=== PATIENT | female | born 1975 | race African-American/Black ===

== ENCOUNTER 2016-09-16 09:23 | Emergency (ER) | payer SELFPAY ==
[2016-09-16] MEDS ORDERED: Dexamethasone 4 MG TAB ONE (10:05)
[2016-09-16] MEDS ORDERED: Ondansetron ODT 4 MG TAB ONE (10:05)
[2016-09-16] MEDS ORDERED: Benzonatate 100 MG CAP ONE (10:05)
--- NOTE | 2016-09-16 10:27 | ERRECORD ---
[facility] EMERGENCY RECORD HPI COUGH (10:14 ABUS) CHIEF COMPLAINT: Patient presents for evaluation of cough, productive of clear sputum. HISTORIAN: History provided by patient, 41 yr old here with 4 days of cough, sore throat, left ear pain, and mild N/V x 2 episodes of vomiting. Denies any F, rash, swelling. LOCATION: Symptoms are generalized. QUALITY: Denies choking sensation, Denies tightness, Denies wheezing. SEVERITY: Currently symptoms are moderate. TIME COURSE: Gradual onset of symptoms, There has been no change in the patient's symptoms over time, are constant. ASSOCIATED WITH: No associated chest pain, Associated with chills, No associated diarrhea, No associated diaphoresis, No associated fever, Associated with nausea, intermittent, No associated orthopnea, Associated with upper respiratory infection, for 4 days, intermittent. EXACERBATED BY: Patient's condition exacerbated by nothing. RELIEVED BY: Patient's condition relieved by nothing. ROS (10:16 ABUS) CONSTITUTIONAL: Negative constitutional review of systems, Historian denies chills, denies fever. ENT: Historian denies drooling, reports otalgia, denies rhinorrhea, reports sore throat. CARDIOVASCULAR: Negative cardiovascular review of systems, Historian denies chest pain, denies palpitations. RESPIRATORY: Historian reports cough, denies cyanosis, denies shortness of breath, reports sputum. described as thin, Historian denies wheezing. GI: Negative gastrointestinal review of systems, Historian denies abdominal pain, denies constipation, denies diarrhea, denies nausea, denies vomiting. GENITOURINARY FEMALE: Negative genitourinary review of systems, Historian denies dysuria, denies frequency. SKIN: Negative skin review of systems, Historian denies rash, denies skin changes. NEUROLOGIC: Negative neurologic review of systems, Historian denies headache. HEMO/LYMPHATIC: Normal hematologic/lymphatic system review, Historian denies abnormal blood clotting. PAST MEDICAL HISTORY (09:38 SFRE) MEDICAL HISTORY: No past medical history. Past medical history is not significant. FEMALE SURGICAL HISTORY: Surgical history of section, Surgical history of section, Surgical history of tubal ligation, Surgical history of section, Notes: X3, Surgical history of tubal ligation. 08-18-15. Surgical history of section. &a-1R&a+25V*p+0X*a1903W*c202B*c15G*c2P*p-0X&a-25V&a+1R Name: Nataly Escobar : 1975 F41 MedRec: [id number] AcctNum: [id number] Prepared: Britta Sep 16, 2016 10:31 by Interface Page 1 of 4 pMD [facility] EMERGENCY RECORD PSYCHIATRIC HISTORY: No previous psychiatric history, Notes: DENIES. Psychiatric history includes. SOCIAL HISTORY: Patient denies alcohol use, Patient denies drug use, Patient has no smoking history. FAMILY HISTORY: Family istory is not significant. KNOWN ALLERGIES No Known Drug Allergies CURRENT MEDICATIONS (09:38 SFRE) None VITAL SIGNS (09:37 SFRE) VITAL SIGNS: BP: 115/49, Pulse: 75, Resp: 18, Temp: 98.3 (Tympanic), Pain: 6 (not applicable), O2 sat: 100 on Room Air, Time: 09/16/2016 09:37. PHYSICAL EXAM CONSTITUTIONAL: Vital signs reviewed, Patient afebrile, Pulse normal, Blood pressure normal, Respiratory rate normal, Patient appears non toxic, Patient appears pain free, Patient alert and oriented to person, place and time. (10:16 ABUS) HEAD: Head exam normal, Head exam included findings of head atraumatic, normocephalic. (10:16 ABUS) EYES: Eye exam included findings of eyelids normal to inspection, Conjunctiva normal, Sclera normal, no periorbital ecchymosis, no periorbital edema, no periorbital erythema. (10:16 ABUS) ENT: Pharynx exam normal, not injected, no swelling, symmetrical, Uvula exam normal, midline, no edema, Tonsils, enlarged bilaterally, without exudates, Sinus exam included findings of frontal sinuses normal, Maxillary sinuses with, tenderness bilaterally, erythema bilaterally, no swelling. (10:17 ABUS) NECK: Neck exam normal, Neck exam included findings of normal range of motion, Trachea midline, no meningeal signs, no cervical adenopathy, no tenderness. (10:16 ABUS) RESPIRATORY CHEST: Respiratory and chest exam normal, Respiratory exam included findings of no respiratory distress, Breath sounds clear. (10:16 ABUS) CARDIOVASCULAR: Cardiovascular assessment normal, Cardiovascular exam included findings of heart rate regular rate and rhythm, Heart sounds normal. (10:16 ABUS) ABDOMEN FEMALE: Abdominal exam included findings of abdomen nontender, Bowel sounds normal, no distension, no mass, no pulsatile masses, no peritoneal signs, no rigidity, no guarding, no rebound, Rovsing's sign absent. (10:16 ABUS) BACK: Back exam normal, Back exam included findings of normal inspection, range of motion normal, no tenderness. (10:16 ABUS) NEURO: Neuro exam normal, Neuro exam findings include patient oriented to person, place and time, Speech normal, Gait normal. &a-1R&a+25V*p+0X*q4705B*c202B*c15G*c2P*p-0X&a-25V&a+1R Name: Nataly Escobar : 1975 F41 MedRec: [id number] AcctNum: [id number] Prepared: Britta Sep 16, 2016 10:31 by Interface Page 2 of 4 pMD [facility] EMERGENCY RECORD (10:16 ABUS) SKIN: Skin exam normal, Skin exam included findings of skin warm, dry, and normal in color, no rash. (10:16 ABUS) MEDICATION ADMINISTRATION SUMMARY Drug Name: Decadron oral, Dose Ordered: 8 mg, Route: Oral, Status: Given, Time: 10:11 09/16/2016, Drug Name: Zofran ODT, Dose Ordered: 4 mg, Route: Oral, Status: Given, Time: 10:10 09/16/2016, Drug Name: Italo Perles, Dose Ordered: 100 mg, Route: Oral, Status: Given, Time: 10:10 09/16/2016, Detailed record available in Medication Service section. DOCTOR NOTES (10:17 ABUS) TEXT: 41 yr old here with 4 days of cough, sore throat, left ear pain, and mild N/V x 2 episodes of vomiting. Exam: Cough, edil enlarged tonsilar swelling without exudates. Left ear wax. DDX: Bronchitis, Viral URI, Flu, Sinusitis, Community Acquired Pneumonia, Allergies, Allergic Rhinitis. PLAN: Antibiotics, antitussives, and Analgesics as needed Final Dispo: D/C Home with regular follow up and return precautions. All results of testing and evaluation were shared with the patient who verbalized understanding and agreement with the plan of care. Level of Complexity / Medical Decision Making: Moderate. PROBLEM LIST No recorded problems DIAGNOSIS (10:11 ABUS) FINAL: PRIMARY: Acute Bronchitis, ADDITIONAL: ACUTE SINUSITIS UNSPECIFIED. PRESCRIPTION (10:10 ABUS) Zofran ODT: TABLET,DISINTEGRATING : 4 mg : ORAL : Quantity: 1 Unit: tab(s) Route: ORAL Schedule: every 6 hours PRN Dispense: 6 Unit: tab(s) May substitute. Refills: No Refills . NOTES: No Refills. acetaminophen-codeine: TABLET : 300 mg-30 mg : ORAL : Quantity: 1 Unit: tab(s) Route: ORAL Schedule: every 6 hours PRN Dispense: 8 Unit: tab(s) May substitute. Refills: No Refills . NOTES: ^s=No Refills No Refills. amoxicillin: CAPSULE : 500 mg : ORAL : Quantity: 1 Unit: cap(s) Route: ORAL Schedule: 3 times a day Dispense: 21 Unit: cap(s) May substitute. Refills: No Refills . NOTES: ^s=^s=No Refills &a-1R&a+25V*p+0X*r6199N*c202B*c15G*c2P*p-0X&a-25V&a+1R Name: Nataly sEcobar : 1975 F41 MedRec: [id number] AcctNum: [id number] Prepared: ThuSep 16, 2016 10:31 by Interface Page 3 of 4 pMD [facility] EMERGENCY RECORD No Refills No Refills. DISPOSITION PATIENT: Disposition Type: Discharge, Disposition: *Discharge Home, Condition: Good. (10:11 ABUS) Patient left the department. (10:25 SFRE) Gomez: ABUS=MD Kandi, Kieran SFRE=ADEBAYO Cabrera, Pao &a-1R&a+25V*p+0X*[id number]*c202B*c15G*c2P*p-0X&a-25V&a+1R Name: Nataly Escobar : 1975 F41 MedRec: [id number] AcctNum: [id number] Prepared: Britta Sep 16, 2016 10:31 by Interface Page 4 of 4 pMD MTDD
--- NOTE | 2016-09-16 10:31 | PICIS ---
[facility] EMERGENCY RECORD TRIAGE (09:38 SFRE) TRIAGE NOTES: COUGH, SORE THROAT, RUNNY NOSE. (09:38 SFRE) PATIENT: NAME: Nataly Escobar, AGE: 41, GENDER: female, : Mon 1975, TIME OF GREET: ThuSep 16, 2016 09:24, PREFERRED LANGUAGE: [place]an, ETHNICITY: Not or , FALL RISK: NO, ECODE BILLING MAP: [facility], SSN: [id number], Zip Code: [address], KG WEIGHT: 61.23, PHONE: CELL, , , PERSON ID: [id number], PCP: MD NICOLE IMELDA. (09:38 SFRE) COMPLAINT: COUGH,SORE THROAT. (09:38 SFRE) ADMISSION: URGENCY: 4 Non Urgent, ADMISSION SOURCE: Home, TRANSPORT: Walk-in, BED: WAIT. (09:38 SFRE) PROVIDERS: TRIAGE NURSE: Pao Cabrera RN. (09:38 SFRE) VITAL SIGNS: BP 115/49, Pulse 75, Resp 18, Temp 98.3, (Tympanic), Pain 6, (not applicable), O2 Sat 100, on Room Air, Time 09/16/2016 09:37. (09:37 SFRE) PREVIOUS VISIT ALLERGIES: No Known Drug Allergies. (09:38 SFRE) No Known Drug Allergies. (09:38 SFRE) KNOWN ALLERGIES No Known Drug Allergies CURRENT MEDICATIONS (09:38 SFRE) None VITAL SIGNS (09:37 SFRE) VITAL SIGNS: BP: 115/49, Pulse: 75, Resp: 18, Temp: 98.3 (Tympanic), Pain: 6 (not applicable), O2 sat: 100 on Room Air, Time: 09/16/2016 09:37. NURSING ASSESSMENT: ENT (09:44 SFRE) CONSTITUTIONAL: Patient arrives ambulatory, Gait steady, History obtained from patient, Patient appears, generally ill, Patient cooperative, Patient alert, Oriented to person, place and time, Skin warm, Skin dry, Skin normal in color, Mucous membranes pink, Mucous membranes moist, Patient is well-groomed, Patient complains of COUGH, CONGESTION, RUNNY NOSE SORE THROAT. PAIN: to the throat, UNABLE TO GIVE QUALITY OF PAIN, on a scale 0-10 patient rates pain as 6, Pain exacerbated by, swallowing, Nothing has been tried to alleviate the pain. ENT: Discharge, thin, yellow, from bilateral nare, Congestion, bilaterally, Mouth and throat assessment findings include mouth inspection normal, Uvula normal, Tonsils normal, Mucous membranes pink, and moist, Able to swallow, Speech normal, no associated fever, no associated headache. RESPIRATORY/CHEST: Breath sounds clear, Respiratory assessment findings include respiratory effort easy, Respirations regular, &a-1R&a+25V*p+0X*m9963P*c202B*c15G*c2P*p-0X&a-25V&a+1R Name: Nataly Escobar : 1975 F41 MedRec: [id number] AcctNum: [id number] Prepared: ThuSep 16, 2016 10:35 by Interface Page 1 of 6 pMD [facility] EMERGENCY RECORD Conversing normally, Neck and chest exam findings include trachea midline, Chest expansion equal, Chest movement symmetrical, Associated with cough, productive of, yellow sputum. SAFETY: Side rails up, Cart/Stretcher in lowest position, Family at bedside, Call light within reach, Hospital ID band on. NURSING PROCEDURE: DISCHARGE NOTE (10:20 SFRE) DISCHARGE: Patient discharged to home, ambulating without assistance, driving self, unaccompanied, Summary of Care printed/ provided, Patient requested and was provided an electronic copy of Discharge Instructions, Discharge instructions given to patient, Simple or moderate discharge teaching performed, by ADEBAYO ACOSTA, F/U WITH PCP. RX DIRECTED. RETURN TO ED NEEDED FOR NEW/CONCERNING OR WORSENING SYMPTOMS., Prescriptions given and instructions on side effects given, Name of prescription(s) given: ZOFRAN, T3, AMOXICILLAN, Above person(s) verbalized understanding of discharge instructions and follow-up care. MEDICATION ADMINISTRATION SUMMARY Drug Name: Decadron oral, Dose Ordered: 8 mg, Route: Oral, Status: Given, Time: 10:11 09/16/2016, Drug Name: Zofran ODT, Dose Ordered: 4 mg, Route: Oral, Status: Given, Time: 10:10 09/16/2016, Drug Name: Tessalon Perles, Dose Ordered: 100 mg, Route: Oral, Status: Given, Time: 10:10 09/16/2016, Detailed record available in Medication Service section. MEDICATION SERVICE Decadron oral: Order: Decadron oral (dexamethasone) - Dose: 8 mg : Oral Schedule: Now Ordered by: Kieran Chau MD Entered by: Kieran Chau MD ThuSep 16, 2016 09:54 , Acknowledged by: Pao Cabrera RN ThuSep 16, 2016 10:00 Documented as given by: Pao Cabrera RN ThuSep 16, 2016 10:11 Patient, Medication, Dose, Route and Time verified prior to administration. Amount given: 8MG, Site: Medication administered P.O., Correct patient, time, route, dose and medication confirmed prior to administration, Patient advised of actions and side-effects prior to administration, Allergies confirmed and medications reviewed prior to administration, Patient in position of comfort, Side rails up, Cart in lowest position, Family at bedside. Italo Enriquez: Order: Italo Enriquez (benzonatate) - Dose: 100 mg : Oral Schedule: Now Ordered by: Kieran Chau MD Entered by: Kieran Chau MD ThuSep 16, 2016 09:54 , &a-1R&a+25V*p+0X*z9000R*c202B*c15G*c2P*p-0X&a-25V&a+1R Name: Nataly Escobar : 1975 F41 MedRec: [id number] AcctNum: [id number] Prepared: ThuSep 16, 2016 10:35 by Interface Page 2 of 6 pMD [facility] EMERGENCY RECORD Acknowledged by: Pao Cabrera RN ThuSep 16, 2016 10:00 Documented as given by: Pao Cabrera RN ThuSep 16, 2016 10:10 Patient, Medication, Dose, Route and Time verified prior to administration. Amount given: 100MG, Site: Medication administered P.O., Correct patient, time, route, dose and medication confirmed prior to administration, Patient advised of actions and side-effects prior to administration, Allergies confirmed and medications reviewed prior to administration, Patient in position of comfort, Side rails up, Cart in lowest position, Family at bedside. Thiago ODT: Order: Zofran ODT (ondansetron) - Dose: 4 mg : Oral Schedule: Now Ordered by: Kieran Chau MD Entered by: Kieran Chau MD dania Sep 16, 2016 09:54 , Acknowledged by: Pao Cabrera RN dania Sep 16, 2016 10:00 Documented as given by: Pao Cabrera RN dania Sep 16, 2016 10:10 Patient, Medication, Dose, Route and Time verified prior to administration. Amount given: 4MG, Site: Medication administered S.L., Correct patient, time, route, dose and medication confirmed prior to administration, Patient advised of actions and side-effects prior to administration, Allergies confirmed and medications reviewed prior to administration, Patient in position of comfort, Side rails up, Cart in lowest position, Family at bedside. HPI COUGH (10:14 ABUS) CHIEF COMPLAINT: Patient presents for evaluation of cough, productive of clear sputum. HISTORIAN: History provided by patient, 41 yr old here with 4 days of cough, sore throat, left ear pain, and mild N/V x 2 episodes of vomiting. Denies any F, rash, swelling. LOCATION: Symptoms are generalized. QUALITY: Denies choking sensation, Denies tightness, Denies wheezing. SEVERITY: Currently symptoms are moderate. TIME COURSE: Gradual onset of symptoms, There has been no change in the patient's symptoms over time, are constant. ASSOCIATED WITH: No associated chest pain, Associated with chills, No associated diarrhea, No associated diaphoresis, No associated fever, Associated with nausea, intermittent, No associated orthopnea, Associated with upper respiratory infection, for 4 days, intermittent. EXACERBATED BY: Patient's condition exacerbated by nothing. RELIEVED BY: Patient's condition relieved by nothing. ROS (10:16 ABUS) CONSTITUTIONAL: Negative constitutional review of systems, Historian denies chills, denies fever. ENT: Historian denies drooling, reports otalgia, denies &a-1R&a+25V*p+0X*n6217A*c202B*c15G*c2P*p-0X&a-25V&a+1R Name: Nataly Escobar : 1975 F41 MedRec: [id number] AcctNum: [id number] Prepared: [place] Sep 16, 2016 10:35 by Interface Page 3 of 6 pMD [facility] EMERGENCY RECORD rhinorrhea, reports sore throat. CARDIOVASCULAR: Negative cardiovascular review of systems, Historian denies chest pain, denies palpitations. RESPIRATORY: Historian reports cough, denies cyanosis, denies shortness of breath, reports sputum. described as thin, Historian denies wheezing. GI: Negative gastrointestinal review of systems, Historian denies abdominal pain, denies constipation, denies diarrhea, denies nausea, denies vomiting. GENITOURINARY FEMALE: Negative genitourinary review of systems, Historian denies dysuria, denies frequency. SKIN: Negative skin review of systems, Historian denies rash, denies skin changes. NEUROLOGIC: Negative neurologic review of systems, Historian denies headache. HEMO/LYMPHATIC: Normal hematologic/lymphatic system review, Historian denies abnormal blood clotting. PAST MEDICAL HISTORY (09:38 SFRE) MEDICAL HISTORY: No past medical history. Past medical history is not significant. FEMALE SURGICAL HISTORY: Surgical history of section, Surgical history of section, Surgical history of tubal ligation, Surgical history of section, Notes: X3, Surgical history of tubal ligation. 15. Surgical history of section. PSYCHIATRIC HISTORY: No previous psychiatric history, Notes: DENIES. Psychiatric history includes. SOCIAL HISTORY: Patient denies alcohol use, Patient denies drug use, Patient has no smoking history. FAMILY HISTORY: Family istory is not significant. PHYSICAL EXAM CONSTITUTIONAL: Vital signs reviewed, Patient afebrile, Pulse normal, Blood pressure normal, Respiratory rate normal, Patient appears non toxic, Patient appears pain free, Patient alert and oriented to person, place and time. (10:16 ABUS) HEAD: Head exam normal, Head exam included findings of head atraumatic, normocephalic. (10:16 ABUS) EYES: Eye exam included findings of eyelids normal to inspection, Conjunctiva normal, Sclera normal, no periorbital ecchymosis, no periorbital edema, no periorbital erythema. (10:16 ABUS) ENT: Pharynx exam normal, not injected, no swelling, symmetrical, Uvula exam normal, midline, no edema, Tonsils, enlarged bilaterally, without exudates, Sinus exam included findings of frontal sinuses normal, Maxillary sinuses with, tenderness bilaterally, erythema bilaterally, no swelling. (10:17 ABUS) NECK: Neck exam normal, Neck exam included findings of normal range of motion, Trachea midline, no meningeal signs, no cervical &a-1R&a+25V*p+0X*w8611V*c202B*c15G*c2P*p-0X&a-25V&a+1R Name: Nataly Escobar : 1975 F41 MedRec: [id number] AcctNum: [id number] Prepared: ThuSep 16, 2016 10:35 by Interface Page 4 of 6 pMD [facility] EMERGENCY RECORD adenopathy, no tenderness. (10:16 ABUS) RESPIRATORY CHEST: Respiratory and chest exam normal, Respiratory exam included findings of no respiratory distress, Breath sounds clear. (10:16 ABUS) CARDIOVASCULAR: Cardiovascular assessment normal, Cardiovascular exam included findings of heart rate regular rate and rhythm, Heart sounds normal. (10:16 ABUS) ABDOMEN FEMALE: Abdominal exam included findings of abdomen nontender, Bowel sounds normal, no distension, no mass, no pulsatile masses, no peritoneal signs, no rigidity, no guarding, no rebound, Rovsing's sign absent. (10:16 ABUS) BACK: Back exam normal, Back exam included findings of normal inspection, range of motion normal, no tenderness. (10:16 ABUS) NEURO: Neuro exam normal, Neuro exam findings include patient oriented to person, place and time, Speech normal, Gait normal. (10:16 ABUS) SKIN: Skin exam normal, Skin exam included findings of skin warm, dry, and normal in color, no rash. (10:16 ABUS) EVENTS TRANSFER: Triage to Emergency Waiting. (ThuSep 16, 2016 09:38 SFRE) Emergency Waiting to Main ED -04. (09:40 SFRE) Emergency Main ED -04 to -03. (09:40 SFRE) Removed from Emergency Main ED -03. (10:25 SFRE) DOCTOR NOTES (10:17 ABUS) TEXT: 41 yr old here with 4 days of cough, sore throat, left ear pain, and mild N/V x 2 episodes of vomiting. Exam: Cough, edil enlarged tonsilar swelling without exudates. Left ear wax. DDX: Bronchitis, Viral URI, Flu, Sinusitis, Community Acquired Pneumonia, Allergies, Allergic Rhinitis. PLAN: Antibiotics, antitussives, and Analgesics as needed Final Dispo: D/C Home with regular follow up and return precautions. All results of testing and evaluation were shared with the patient who verbalized understanding and agreement with the plan of care. Level of Complexity / Medical Decision Making: Moderate. PROBLEM LIST No recorded problems DIAGNOSIS (10:11 ABUS) FINAL: PRIMARY: Acute Bronchitis, ADDITIONAL: ACUTE SINUSITIS UNSPECIFIED. DISPOSITION PATIENT: Disposition Type: Discharge, Disposition: *Discharge Home, Condition: Good. (10:11 ABUS) Patient left the department. (10:25 SFRE) &a-1R&a+25V*p+0X*z3742K*c202B*c15G*c2P*p-0X&a-25V&a+1R Name: Nataly Escobar : 1975 F41 MedRec: [id number] AcctNum: [id number] Prepared: Britta Sep 16, 2016 10:35 by Interface Page 5 of 6 pMD [facility] EMERGENCY RECORD INSTRUCTION (10:11 ABUS) DISCHARGE: BRONCHITIS, ABX TX (ADULT), SINUSITIS, ABX TX. FOLLOWUP: MD COERY, [facility], [facility], [address] [place] [id number], [phone], Follow up with Primary Care Physician in 2-3 days. SPECIAL: Please keep any upcoming appointments with your primary doctor or call the referral provided to you today to establish a follow up evaluation or ongoing medical care. Please come back if you start to have fever, vomiting, chest pain, chest tightness, shortness of breath, or any symptoms that concern you. PRESCRIPTION (10:10 ABUS) Zofran ODT: TABLET,DISINTEGRATING : 4 mg : ORAL : Quantity: 1 Unit: tab(s) Route: ORAL Schedule: every 6 hours PRN Dispense: 6 Unit: tab(s) May substitute. Refills: No Refills . NOTES: No Refills. acetaminophen-codeine: TABLET : 300 mg-30 mg : ORAL : Quantity: 1 Unit: tab(s) Route: ORAL Schedule: every 6 hours PRN Dispense: 8 Unit: tab(s) May substitute. Refills: No Refills . NOTES: ^s=No Refills No Refills. amoxicillin: CAPSULE : 500 mg : ORAL : Quantity: 1 Unit: cap(s) Route: ORAL Schedule: 3 times a day Dispense: 21 Unit: cap(s) May substitute. Refills: No Refills . NOTES: ^s=^s=No Refills No Refills No Refills. ADMIN (10:19 [facility]) DIGITAL SIGNATURE: MD Chau Anthony. Gomez: ABUS=MD Chau Anthony SFRE=ADEBAYO Cabrera, Pao &a-1R&a+25V*p+0X*a9968J*c202B*c15G*c2P*p-0X&a-25V&a+1R Name: Escobar Nataly Oliverio : 1975 F41 MedRec: [id number] AcctNum: [id number] Prepared: Britta Sep 16, 2016 10:35 by Interface Page 6 of 6 pMD MTDD
== END 2016-09-16 10:19 | disposition home or self-care (01) ==
LOC: MADERS 09:23
DX: J20.9 Acute bronchitis, unspecified (principal); J01.90 Acute sinusitis, unspecified; Z98.51 Tubal ligation status
CPT/HCPCS: 99283; J8540; Q0162

== ENCOUNTER 2016-10-05 17:19 | Emergency (ER) | payer SELFPAY ==
--- NOTE | 2016-10-05 18:11 | RAD ---
3 VIEWS OF RIGHT SHOULDER: Date: 10/05/16 HISTORY: Injury. FINDINGS: No widening of the acromioclavicular or coracoclavicular interspace. No displaced fracture or disloc ation seen. IMPRESSION: No acute findings. POS: KARLA
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
== END 2016-10-05 19:24 | disposition home or self-care (01) ==
LOC: MADERS 17:19
DX: S40.011A Contusion of right shoulder, initial encounter (principal); X58.XXXA Exposure to other specified factors, initial encounter
CPT/HCPCS: 99283

== ENCOUNTER 2016-12-31 00:37 | Emergency (ER) | payer SELFPAY ==
[2016-12-31] MEDS ORDERED: Ketorolac Tromethamine 60 MG/2 ML VIAL ONE (01:09)
[2016-12-31] MEDS ORDERED: predniSONE 20 MG TAB ONE (01:09)
== END 2016-12-31 01:38 | disposition home or self-care (01) ==
LOC: MADERS 00:37
DX: S00.33XA Contusion of nose, initial encounter (principal); M54.41 Lumbago with sciatica, right side; J45.909 Unspecified asthma, uncomplicated; W22.8XXA Striking against or struck by other objects, initial encounter
CPT/HCPCS: 96372; J1885; J7506

== ENCOUNTER 2017-02-07 11:57 | Emergency (ER) | payer SELFPAY ==
[~2017-02-07 11:57] MED LIST: Sodium Chloride 0.9% 1,000 ML BAG ONE
[2017-02-07] MEDS ORDERED: Ondansetron HCl/PF 4 MG/2 ML Vial ONE (12:34)
[2017-02-07] MEDS ORDERED: Ketorolac Tromethamine 30 MG/ML VIAL ONE (12:34)
[2017-02-07] MEDS ORDERED: Diphenoxylate HCl/Atropine Tablet ONE (12:35)
[2017-02-07] MEDS ORDERED: Metoclopramide HCl 10 MG/2 ML VIAL ONE (12:35)
[2017-02-07 13:12] LABS: BHCG - Serum NEGATIVE (NEGATIVE); Pregs Control Background? CLEAR/WHITE (CLR/WHITE); Pregs Control Bar Appear? YES (CONTROL BAR)
[2017-02-07 13:12] LABS: Clarity Cloudy (Clear); Leukocyte Small (Negative); Nitrite Negative (Negative); Specific Gravity, Urine 1.029 (1.005-1.030)
[2017-02-07 13:13] LABS: White Blood Cell (WBC) Count 6.7 thou/uL (4.8-10.8)
[2017-02-07 13:13] LABS: Bacteria/HPF 3+ HPF (None Seen); Bilirubin Small (Negative); Blood, Urine Large (Negative); Glucose, Urine (Dipstick) Negative (Negative); Icto Negative (Negative); Protein, Urine (Dipstick) Trace mg/dL (Neg-Trace); RBC/HPF GREATER THAN 50-TNTC HPF (0-3); Renal Epithelial 0-3 HPF (0-3); Transitional Epithelial 0-3 HPF (0-3); Urobilinogen 0.2 mg/dL (0.2-1.0)
[2017-02-07 13:14] LABS: ALT (SGPT) 10 U/L (8-55); AST (SGOT) 18 U/L (5-34); Albumin 4.1 g/dL (3.5-5.0); Alkaline Phosphatase 68 U/L (40-150); Anion Gap 16 mmol/L (10-20); BUN (Urea Nitrogen) 10 mg/dL (7.0-18.7); Band 3 % (5-11); Bilirubin, Total 0.3 mg/dL (0.2-1.2); Calc. Creatinine Clearance 0 mL/min (70-130); Calcium 9.2 mg/dL (7.8-10.44); Carbon Dioxide 24 mmol/L (22-29); Chloride 102 mmol/L (98-107); Estimated GFR-MDRD Greater than 90; Globulin 3.2 g/dL (2.4-3.5); Glucose 89 mg/dL (70-105); Hemoglobin 11.4 g/dL (12.0-16.0); Lipase 23 U/L (8-78); Lymphocytes 26 % (21-51); MDiff Complete? YES; Manual Diff?? YES; Mean Corpuscular HGB CONC 31.7 g/dL (32.0-36.0); Mean Corpuscular Hemoglobin 23.4 pg (27.0-31.0); Mean Corpuscular Volume 73.7 fL (81.0-99.0); Mean Platelet Volume 11.8 fL (7.4-10.4); Neutrophil 62 % (42-75); Platelet Count 176 thou/uL (130-400); Potassium 3.2 mmol/L (3.5-5.1); Protein, Total 7.3 g/dL (6.0-8.3); RBC Distribution Width 15.9 % (11.5-14.5); Red Blood Cell (RBC) Count 4.87 mill/uL (4.20-5.40); Sodium 139 mmol/L (136-145)
[2017-02-07 13:15] LABS: Metamyelocyte 1 % (0-0); Monocytes 7 % (0-10); Myelocyte 1 % (0-0)
[2017-02-07] MEDS ORDERED: Sulfameth/Trimethoprim DS 800-160mg TAB ONE ×2 (13:23→13:24)
[2017-02-07] MEDS ORDERED: Ciprofloxacin 500 MG TAB ONE (13:23)
== END 2017-02-07 13:47 | disposition home or self-care (01) ==
LOC: MADERS 11:57
DX: R11.2 Nausea with vomiting, unspecified (principal); R19.7 Diarrhea, unspecified; J45.909 Unspecified asthma, uncomplicated
CPT/HCPCS: 36415; 80053; 81001; 82150; 83690; 84703; 85025; 87077; 87086; 96365; 96375; J1885; J2405; J2765; J7050

== ENCOUNTER 2018-05-03 14:51 | Emergency (ER) | payer SELFPAY ==
[2018-05-03 15:53] LABS: #Basophils 0.1 thou/uL (0.0-0.2); #Lymphocytes 2.1 thou/uL (1.20-3.40); #Monocytes 1.1 thou/uL (0.11-0.59); #Neutrophils 9.4 thou/uL (1.40-6.50); %Basophils 0.8 % (0.0-1.0); %Eosinophils 0.1 % (0.0-10.0); %Lymphocytes 16.6 % (21.0-51.0); %Monocytes 8.7 % (0.0-10.0); %Neutrophils 73.8 % (42.0-75.0); Hemoglobin 11.6 g/dL (12.0-16.0); Mean Corpuscular HGB CONC 30.5 g/dL (32.0-36.0); Mean Corpuscular Hemoglobin 24.9 pg (27.0-31.0); Mean Corpuscular Volume 81.7 fL (78.0-98.0); Mean Platelet Volume 9.4 fL (7.4-10.4); Platelet Count 187 thou/uL (130-400); RBC Distribution Width 15.4 % (11.5-14.5); Red Blood Cell (RBC) Count 4.65 mill/uL (4.20-5.40); White Blood Cell (WBC) Count 12.7 thou/uL (4.8-10.8)
[2018-05-03 15:54] LABS: Bilirubin Negative (Negative); Blood, Urine Trace (Negative); Clarity Clear (Clear); Glucose, Urine (Dipstick) Negative (Negative); Leukocyte Trace (Negative); Nitrite Negative (Negative); Protein, Urine (Dipstick) Negative (Neg-Trace); Specific Gravity, Urine 1.003 (1.002-1.036); Urobilinogen 0.2 mg/dL (0.2-1.0); pH, Urine 6.5 (5.0-9.0)
[2018-05-03 15:55] LABS: Bacteria/HPF Rare-Few HPF (None Seen); Pregnancy Test - Urine (BHCG) Negative (Negative); Pregu Control Background? CLEAR/WHITE (CLR/WHITE); Pregu Control Bar Appear? YES (CONTROL BAR); RBC/HPF 0-3 HPF (0-3); Specific Gravity 1.003 (1.002-1.036); Squamous Epithelial 0-3 HPF (0-3); WBC/HPF 0-3 HPF (0-3)
[2018-05-03 16:08] LABS: ALT (SGPT) 8 U/L (8-55); AST (SGOT) 15 U/L (5-34); Albumin 4.4 g/dL (3.5-5.0); Alkaline Phosphatase 85 U/L (40-150); Anion Gap 15 mmol/L (10-20); BUN (Urea Nitrogen) 7 mg/dL (7.0-18.7); Bilirubin, Total 0.5 mg/dL (0.2-1.2); Calc. Creatinine Clearance 0 mL/min (70-130); Calcium 9.4 mg/dL (7.8-10.44); Carbon Dioxide 24 mmol/L (22-29); Chloride 103 mmol/L (98-107); Estimated GFR-MDRD Greater than 90; Globulin 3.2 g/dL (2.4-3.5); Glucose 88 mg/dL (70-105); Potassium 3.9 mmol/L (3.5-5.1); Protein, Total 7.6 g/dL (6.0-8.3); Sodium 138 mmol/L (136-145)
--- NOTE | 2018-05-03 16:39 | CT ---
CT ABDOMEN AND PELVIS WITHOUT CONTRAST: Date: 05/03/18 Multiple axial tomograms obtained through the abdomen and pelvis without IV enhancement. INDICATION: Right side abdominal pain. Right flank pain. No comparison. FINDINGS: Lung bases clear. Liver, spleen, and pancreas are unremarkable given the limitations of a noncontrasted study. There is a calcified gallstone seen in the neck of the gallbladder measuring approximately 4-5 mm. Review of kidneys show no evidence of hydronephrosis. No evidence of urinary tract calculus. The blad caleb is mildly distended and there is suggestion of mild bladder wall thickening. Small bowel loops appear normal. Appendix appears normal. Images through the pelvis show unremarkable uterus and adnexa. No evidence of adenopathy. IMPRESSION: 1. Cholelithiasis. 2. No evidence of urinary tract calculus or obstruction. No other acute process identified. POS: [facility]
[2018-05-03] MEDS ORDERED: Ondansetron HCl/PF 4 MG/2 ML Vial ONE (16:59)
[2018-05-03] MEDS ORDERED: Morphine 4 MG/ML VIAL ONE (16:59)
== END 2018-05-03 17:19 | disposition short-term general hospital (02) ==
LOC: MADERS 14:51
DX: K80.20 Calculus of gallbladder without cholecystitis without obstruction (principal); J45.909 Unspecified asthma, uncomplicated
CPT/HCPCS: 36415; 74176; 80053; 81003; 81015; 81025; 85025; 96374; 96375; J2270; J2405

== ENCOUNTER 2018-05-08 23:16 | Emergency (ER) | payer SELFPAY ==
[~2018-05-08 23:16] MED LIST changes: +Iopamidol 370 76% 100 ML VIAL ONE
[2018-05-09] MEDS ORDERED: Morphine 4 MG/ML VIAL ONE (00:21)
[2018-05-09] MEDS ORDERED: Ondansetron HCl/PF 4 MG/2 ML Vial ONE (00:21)
[2018-05-09 01:01] LABS: #Basophils 0.1 thou/uL (0.0-0.2); #Lymphocytes 0.6 thou/uL (1.20-3.40); #Monocytes 0.7 thou/uL (0.11-0.59); #Neutrophils 12.6 thou/uL (1.40-6.50); %Basophils 0.8 % (0.0-1.0); %Lymphocytes 4.3 % (21.0-51.0); %Neutrophils 89.9 % (42.0-75.0); Hemoglobin 11.9 g/dL (12.0-16.0); Mean Corpuscular HGB CONC 31.7 g/dL (32.0-36.0); Mean Corpuscular Hemoglobin 25.8 pg (27.0-31.0); Mean Corpuscular Volume 81.3 fL (78.0-98.0); Mean Platelet Volume 12.4 fL (7.4-10.4); Platelet Count 207 thou/uL (130-400); RBC Distribution Width 15.1 % (11.5-14.5); Red Blood Cell (RBC) Count 4.61 mill/uL (4.20-5.40)
[2018-05-09 01:03] LABS: ALT (SGPT) 158 U/L (8-55); AST (SGOT) 59 U/L (5-34); Albumin 4.4 g/dL (3.5-5.0); Alkaline Phosphatase 140 U/L (40-150); Anion Gap 19 mmol/L (10-20); BUN (Urea Nitrogen) 8 mg/dL (7.0-18.7); Bilirubin, Total 0.9 mg/dL (0.2-1.2); Calc. Creatinine Clearance 0 mL/min (70-130); Calcium 9.7 mg/dL (7.8-10.44); Carbon Dioxide 23 mmol/L (22-29); Chloride 101 mmol/L (98-107); Estimated GFR-MDRD Greater than 90; Globulin 3.3 g/dL (2.4-3.5); Glucose 110 mg/dL (70-105); Lipase 4 U/L (8-78); Potassium 4.1 mmol/L (3.5-5.1); Protein, Total 7.7 g/dL (6.0-8.3); Sodium 139 mmol/L (136-145)
[2018-05-09 02:25] LABS: Bilirubin Small (Negative); Blood, Urine Trace (Negative); Glucose, Urine (Dipstick) Negative (Negative); Leukocyte Negative (Negative); Nitrite Negative (Negative); Protein, Urine (Dipstick) 100 mg/dL (Neg-Trace); Specific Gravity, Urine 1.025 (1.005-1.030)
[2018-05-09 02:34] LABS: Clarity Clear (Clear)
[2018-05-09 02:39] LABS: Bacteria/HPF Rare-Few HPF (None Seen)
[2018-05-09] MEDS ORDERED: Ketorolac Tromethamine 30 MG/ML VIAL ONE (02:41)
--- NOTE | 2018-05-09 09:38 | CT ---
PRELIMINARY REPORT/[facility]/EMERGENTY AFTER-HOURS PROCEDURE CT Abdomen and Pelvis With Intravenous Contrast CLINICAL HISTORY: 43 years old, female; Pain and signs and symptoms; Nausea and vomiting; Abdominal pain;BGeneralized; Prior surgery; Surgery date: 3-7 days post-operative; Surgery type: Cholecystectomy on 05/05/18 TECHNIQUE: Axial computed tomography images of the abdomen and pelvis with intravenous contrast. Coronal and sagittal reformatted images were created and reviewed. CONTRAST: 90 mL of ISOVUE 370 administered intravenously. COMPARISON: No relevant prior studies available. FINDINGS: Lung bases: Normal. No mass. No consolidation. ABDOMEN: Liver: Normal. Gallbladder and bile ducts: Small amount of low attenuation material within the gallbladder fossa and ancelmo hepatis region, likely expected postsurgical changes. No abscess. Gallbladder is surgically absent. Pancreas: Normal. Spleen: Normal. Adrenals: Normal. Kidneys and ureters: Normal. Stomach and bowel: Normal. PELVIS: Appendix: Appendix is normal. Bladder: Normal. Reproductive: Normal as visualized. ABDOMEN and PELVIS: Intraperitoneal space: Pelvis within the pelvis. Small amount of pelvic free fluid, likely physiologi c. No free air. Bones/joints: No acute fracture. No dislocation. Soft tissues: Small fat-containing umbilical hernia. Small amount of fluid within the intramuscular r egion of the right abdominal wall, likely secondary to recent surgery. Vasculature: Normal. No abdominal aortic aneurysm. Lymph nodes: Normal. IMPRESSION: 1. No acute abdominal or pelvic abnormality. 2. Small amount of low attenuation material within the gallbladder fossa and ancelmo hepatis region, li lashawn expected postsurgical changes. No abscess. 3. Incidental/non-acute findings are described above. Thank you for allowing us to participate in the care of your patient. Dictated and Authenticated by: Vick Puentes MD 05/09/2018 2:36 AM Central Time ([place] & [place]) FINAL REPORT CT ABDOMEN AND PELVIS WITH CONTRAST: Multiple axial tomograms are obtained through the abdomen and pelvis with IV enhancement. A small amount of free fluid in the pelvis. Postoperative changes of the gallbladder fossa. I am in agreement with the preliminary report. POS: [facility]
== END 2018-05-09 05:46 | disposition home or self-care (01) ==
LOC: MADERS 23:16
DX: G89.18 Other acute postprocedural pain (principal); K56.7 Ileus, unspecified; J45.909 Unspecified asthma, uncomplicated; Z79.891 Long term (current) use of opiate analgesic; Z79.899 Other long term (current) drug therapy
CPT/HCPCS: 36415; 74177; 80053; 81003; 81015; 82274; 83690; 85025; 96361; 96374; 96375; J1885; J2270; J2405; J7050

== ENCOUNTER 2018-06-30 22:59 | Emergency (ER) | payer SELFPAY ==
--- NOTE | 2018-06-30 23:30 | RAD ---
RIGHT KNEE FOUR VIEWS: 06/30/18 HISTORY: Right knee injury. FINDINGS: Joint spaces are preserved. No acute fracture, dislocation, or fluid distention of the suprapatellar bursa. IMPRESSION: No acute osseous abnormalities are demonstrated. POS: [facility]
== END 2018-06-30 23:52 | disposition home or self-care (01) ==
LOC: MADERS 22:59
DX: S80.01XA Contusion of right knee, initial encounter (principal); J45.909 Unspecified asthma, uncomplicated; W18.30XA Fall on same level, unspecified, initial encounter

== ENCOUNTER 2019-09-11 22:18 | Emergency (ER) | payer SELFPAY | END 2019-09-11 22:38 | disposition home or self-care (01) | LOC: MADERS 22:18 | DX: J02.9 Acute pharyngitis, unspecified (principal); J45.909 Unspecified asthma, uncomplicated | CPT/HCPCS: 99283 ==

== ENCOUNTER 2020-03-19 19:42 | Emergency (ER) | payer SELFPAY ==
[2020-03-19] MEDS ORDERED: Ibuprofen 800 MG TAB ONE (20:01)
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
== END 2020-03-19 20:45 | disposition home or self-care (01) ==
LOC: MADERS 19:42
DX: S93.491A Sprain of other ligament of right ankle, initial encounter (principal); J45.909 Unspecified asthma, uncomplicated; X50.9XXA Other and unspecified overexertion or strenuous movements or postures, initial encounter

== ENCOUNTER 2020-05-29 03:01 | Emergency (ER) | payer SELFPAY ==
[2020-05-29] MEDS ORDERED: Boostrix 0.5 ML VIAL ONE (03:15)
[2020-05-29] MEDS ORDERED: Amoxicillin/Potassium Clav 875 MG TAB ONE (03:30)
[2020-05-29] MEDS ORDERED: Bacitracin 1 PK ONE (03:30)
== END 2020-05-29 03:38 | disposition home or self-care (01) ==
LOC: MADERS 03:01
DX: S61.212A Laceration without foreign body of right middle finger without damage to nail, initial encounter (principal); J45.909 Unspecified asthma, uncomplicated; W25.XXXA Contact with sharp glass, initial encounter
CPT/HCPCS: 90471; 90715

== ENCOUNTER 2021-04-13 12:31 | Emergency (ER) | payer SELFPAY | END 2021-04-13 13:54 | disposition home or self-care (01) | LOC: MADERS 12:31 | DX: K04.7 Periapical abscess without sinus (principal); K02.9 Dental caries, unspecified; J45.909 Unspecified asthma, uncomplicated | CPT/HCPCS: 99282 ==

== ENCOUNTER 2021-07-17 10:53 | Emergency (ER) | payer SELFPAY | END 2021-07-17 12:10 | disposition home or self-care (01) | LOC: MADERS 10:53 | DX: J06.9 Acute upper respiratory infection, unspecified (principal); J45.909 Unspecified asthma, uncomplicated | CPT/HCPCS: 87081; 87430; 99283 ==

== ENCOUNTER 2021-11-21 18:52 | Emergency (ER) | payer SELFPAY ==
[2021-11-21 19:24] LABS: #Basophils 0.1 thou/uL (0.0-0.2); #Lymphocytes 2.1 thou/uL (1.20-3.40); #Monocytes 0.6 thou/uL (0.11-0.59); #Neutrophils 5.5 thou/uL (1.40-6.50); %Eosinophils 0.4 % (0.0-10.0); %Monocytes 7.7 % (0.0-10.0); %Neutrophils 65.9 % (42.0-75.0); Hemoglobin 10.4 g/dL (12.0-16.0); Mean Corpuscular HGB CONC 31.5 g/dL (32.0-36.0); Mean Corpuscular Hemoglobin 26.2 pg (27.0-31.0); Mean Corpuscular Volume 83.2 fL (78.0-98.0); Mean Platelet Volume 9.4 fL (7.4-10.4); Platelet Count 227 thou/uL (130-400); RBC Distribution Width 14.1 % (11.5-14.5); Red Blood Cell (RBC) Count 3.97 mill/uL (4.20-5.40); White Blood Cell (WBC) Count 8.3 thou/uL (4.8-10.8)
[2021-11-21 19:35] LABS: BHCG - Serum Negative (NEGATIVE); Pregs Control Background? CLEAR/WHITE (CLR/WHITE); Pregs Control Bar Appear? YES (CONTROL BAR)
[2021-11-21 19:41] LABS: ALT (SGPT) 15 U/L (8-55); AST (SGOT) 19 U/L (5-34); Albumin 3.9 g/dL (3.5-5.0); Alkaline Phosphatase 86 U/L (40-110); Anion Gap 11 mmol/L (10-20); BUN (Urea Nitrogen) 10 mg/dL (7.0-18.7); Bilirubin, Total 0.2 mg/dL (0.2-1.2); Calc. Creatinine Clearance 0 mL/min (70-130); Calcium 8.8 mg/dL (7.8-10.44); Carbon Dioxide 28 mmol/L (22-29); Chloride 105 mmol/L (98-107); Globulin 2.9 g/dL (2.4-3.5); Glucose 93 mg/dL (70-105); Protein, Total 6.8 g/dL (6.0-8.3); Sodium 140 mmol/L (136-145)
[2021-11-22 15:12] LABS: Chlamydia by PCR Not Detected (NotDetected); GC by PCR Not Detected (NotDetected)
== END 2021-11-21 21:12 | disposition home or self-care (01) ==
LOC: MADERS 18:52
DX: N92.0 Excessive and frequent menstruation with regular cycle (principal); N93.9 Abnormal uterine and vaginal bleeding, unspecified; D64.9 Anemia, unspecified; J45.909 Unspecified asthma, uncomplicated
CPT/HCPCS: 36415; 80053; 84703; 85025; 86850; 86900; 86901; 87480; 87491; 87510; 87591; 87660; 99284

== ENCOUNTER 2022-05-30 07:52 | Emergency (ER) | payer BC ==
[2022-05-30 08:50] LABS: #Basophils 0.1 thou/uL (0.0-0.2); #Eosinphils 0.1 thou/uL (0.0-0.7); #Lymphocytes 1.4 thou/uL (1.20-3.40); #Monocytes 0.5 thou/uL (0.11-0.59); #Neutrophils 3.1 thou/uL (1.40-6.50); %Basophils 1.1 % (0.0-1.0); %Lymphocytes 27.7 % (21.0-51.0); %Monocytes 10.2 % (0.0-10.0); Hemoglobin 6.2 g/dL (12.0-16.0); Mean Corpuscular HGB CONC 25.3 g/dL (32.0-36.0); Mean Corpuscular Hemoglobin 13.9 pg (27.0-31.0); Mean Corpuscular Volume 55.1 fL (78.0-98.0); Mean Platelet Volume 8.8 fL (7.4-10.4); Platelet Count 445 thou/uL (130-400); RBC Distribution Width 16.5 % (11.5-14.5); Red Blood Cell (RBC) Count 4.44 mill/uL (4.20-5.40); White Blood Cell (WBC) Count 5.2 thou/uL (4.8-10.8)
[2022-05-30 08:53] LABS: Hypochromia MODERATE=16-30 cells (100X) (0-5/hpf); Microcytosis MODERATE=15-30 cells (100X) (0-5/hpf); Poikilocytosis SLIGHT = 6-15 cells (100X) (0-5/hpf)
[2022-05-30 08:55] LABS: ALT (SGPT) Less than 7 U/L (8-55); AST (SGOT) 14 U/L (5-34); Albumin 4.1 g/dL (3.5-5.0); Alkaline Phosphatase 82 U/L (40-110); Anion Gap 15 mmol/L (10-20); Anisocytosis SLIGHT = 6-15 cells (100X) (0-5/hpf); BUN (Urea Nitrogen) 10 mg/dL (7.0-18.7); Bilirubin, Total 0.3 mg/dL (0.2-1.2); Calc. Creatinine Clearance 0 mL/min (70-130); Calcium 9.2 mg/dL (7.8-10.44); Carbon Dioxide 23 mmol/L (22-29); Chloride 106 mmol/L (98-107); Estimated GFR 98; Globulin 3.2 g/dL (2.4-3.5); Glucose 111 mg/dL (70-105); Potassium 3.9 mmol/L (3.5-5.1); Protein, Total 7.3 g/dL (6.0-8.3); Sodium 140 mmol/L (136-145)
[2022-05-30 08:56] LABS: BHCG - Serum Negative (NEGATIVE); Platelet Morphology Comment Appears Increased; Pregs Control Background? CLEAR/WHITE (CLR/WHITE); Pregs Control Bar Appear? YES (CONTROL BAR)
== END 2022-05-30 09:40 | disposition home or self-care (01) ==
LOC: MADERS 07:52
DX: D50.9 Iron deficiency anemia, unspecified (principal); J45.909 Unspecified asthma, uncomplicated; Z79.899 Other long term (current) drug therapy
CPT/HCPCS: 80053; 84703; 85025; 99284

== ENCOUNTER 2022-06-18 11:47 | Outpatient (CLI) | payer BC ==
[2022-06-18 12:18] LABS: Prothrombin Time 12.9 sec (12.0-14.7)
[2022-06-18 12:55] LABS: #Basophils 0.1 thou/uL (0.0-0.2); #Eosinphils 0.1 thou/uL (0.0-0.7); #Monocytes 0.6 thou/uL (0.11-0.59); %Basophils 1.5 % (0.0-1.0); %Eosinophils 1.1 % (0.0-10.0); %Lymphocytes 21.1 % (21.0-51.0); %Monocytes 6.7 % (0.0-10.0); %Neutrophils 69.6 % (42.0-75.0); Hemoglobin 7.2 g/dL (12.0-16.0); Mean Corpuscular HGB CONC 25.5 g/dL (32.0-36.0); Mean Corpuscular Hemoglobin 14.8 pg (27.0-31.0); Mean Corpuscular Volume 58.3 fL (78.0-98.0); Mean Platelet Volume 11.2 fL (7.4-10.4); Platelet Count 326 thou/uL (130-400); RBC Distribution Width 17.6 % (11.5-14.5); Red Blood Cell (RBC) Count 4.84 mill/uL (4.20-5.40); White Blood Cell (WBC) Count 8.6 thou/uL (4.8-10.8)
[2022-06-18 13:04] LABS: Anisocytosis SLIGHT = 6-15 cells (100X) (0-5/hpf); Microcytosis MODERATE=15-30 cells (100X) (0-5/hpf); Poikilocytosis SLIGHT = 6-15 cells (100X) (0-5/hpf)
[2022-06-18 13:05] LABS: Platelet Morphology Comment Appears Adequate
== END 2022-06-18 11:48 | disposition home or self-care (01) ==
LOC: MADLAB 11:47
PROVIDERS: ATTEND Family Medicine
DX: D50.9 Iron deficiency anemia, unspecified (principal); D69.6 Thrombocytopenia, unspecified
CPT/HCPCS: 85025; 85610; 85730

== ENCOUNTER 2022-12-22 18:49 | Emergency (ER) | payer BC, SELFPAY ==
[2022-12-22] MEDS ORDERED: Acetaminophen 500 MG TAB ONE (19:25)
== END 2022-12-22 19:48 | disposition home or self-care (01) ==
LOC: MADERS 18:49
DX: S63.502A Unspecified sprain of left wrist, initial encounter (principal); D64.9 Anemia, unspecified; X50.1XXA Overexertion from prolonged static or awkward postures, initial encounter

== ENCOUNTER 2023-08-20 20:33 | Emergency (ER) | payer SELFPAY ==
[2023-08-20] MEDS ORDERED: Dicyclomine 10 MG CAP ONE (21:04)
[2023-08-20] MEDS ORDERED: Simethicone Chewable 80 MG TAB ONE (21:04)
[2023-08-20] MEDS ORDERED: Ketorolac Tromethamine 30 MG/ML VIAL ONE (21:05)
[2023-08-20 21:35] LABS: Bacteria/HPF 1+ HPF (None Seen); Bilirubin Negative (Negative); Blood, Urine Negative (Negative); CAUTI Indications for Culture Pelvic or flank pain; Clarity Hazy (Clear); Glucose, Urine (Dipstick) Negative (Negative); Ketone, Urine Trace mg/dL (Negative); Leukocyte Trace (Negative); Mucous/LPF 1+ LPF (<2+); Nitrite Negative (Negative); Protein, Urine (Dipstick) Trace mg/dL (Neg-Trace); RBC/HPF 0-3 HPF (0-3); WBC/HPF 21-50 HPF (0-3)
[2023-08-20 21:36] LABS: Urine Culture Reflex Yes Yes
[2023-08-20 21:37] LABS: ALT (SGPT) 13 U/L (8-55); AST (SGOT) 19 U/L (5-34); Albumin 4.1 g/dL (3.5-5.0); Alkaline Phosphatase 88 U/L (40-110); Anion Gap 11 mmol/L (10-20); BUN (Urea Nitrogen) 10 mg/dL (7.0-18.7); Bilirubin, Total Less than 0.2 mg/dL (0.2-1.2); Calc. Creatinine Clearance 0 mL/min (70-130); Carbon Dioxide 27 mmol/L (22-29); Chloride 106 mmol/L (98-107); Estimated GFR 90; Globulin 3.3 g/dL (2.4-3.5); Glucose 78 mg/dL (70-105); Lipase 33 U/L (8-78); Potassium 3.9 mmol/L (3.5-5.1); Protein, Total 7.4 g/dL (6.0-8.3); Sodium 140 mmol/L (136-145)
[2023-08-20 21:39] LABS: #Basophils 0.1 thou/uL (0.0-0.2); #Eosinphils 0.2 thou/uL (0.0-0.7); #Lymphocytes 2.3 thou/uL (1.20-3.40); #Monocytes 0.8 thou/uL (0.11-0.59); #Neutrophils 4.9 thou/uL (1.40-6.50); %Basophils 0.7 % (0.0-1.0); %Eosinophils 2.8 % (0.0-10.0); %Lymphocytes 27.7 % (21.0-51.0); %Neutrophils 58.8 % (42.0-75.0); Hematocrit 36.8 % (36.0-47.0); Hemoglobin 11.1 g/dL (12.0-16.0); Mean Corpuscular HGB CONC 30.2 g/dL (32.0-36.0); Mean Platelet Volume 11.1 fL (7.4-10.4); Platelet Count 167 10x3/uL (130-400); Red Blood Cell (RBC) Count 4.84 mill/uL (4.20-5.40); White Blood Cell (WBC) Count 8.3 10x3/uL (4.8-10.8)
[2023-08-20 21:40] LABS: Anisocytosis SLIGHT = 6-15 cells (100X) (0-5/hpf); Hypochromia SLIGHT = 6-15 cells (100X) (0-5/hpf); MDiff Complete? YES; Microcytosis SLIGHT = 6-15 cells (100X) (0-5/hpf); Ovalocytes SLIGHT = 2-5 cells (100X) (0-1/hpf); Platelet Adequacy Comment Appears Adequate
== END 2023-08-20 22:15 | disposition home or self-care (01) ==
LOC: MADERS 20:33
DX: R10.84 Generalized abdominal pain (principal); R82.71 Bacteriuria
CPT/HCPCS: 36415; 80053; 81001; 83690; 85025; 87086; 96372; 99283; J1885

== ENCOUNTER 2023-11-24 22:25 | Emergency (ER) | payer SELFPAY | END 2023-11-24 23:10 | disposition home or self-care (01) | LOC: MADERS 22:25 | DX: R09.81 Nasal congestion (principal); R11.0 Nausea; J45.909 Unspecified asthma, uncomplicated; D64.9 Anemia, unspecified | CPT/HCPCS: 99283 ==

== ENCOUNTER 2023-11-26 22:44 | Emergency (ER) | payer SELFPAY ==
[2023-11-26] MEDS ORDERED: Ipratropium/Albuterol 3 ML NEB ONE (23:07)
[2023-11-26] MEDS ORDERED: predniSONE 20 MG TAB ONE (23:08)
[2023-11-26] MEDS ORDERED: predniSONE 10 MG TAB ONE (23:08)
== END 2023-11-26 23:46 | disposition home or self-care (01) ==
LOC: MADERS 22:44
DX: R06.2 Wheezing (principal); R06.02 Shortness of breath; R09.81 Nasal congestion; Z86.2 Personal history of diseases of the blood and blood-forming organs and certain disorders involving the immune mechanism
CPT/HCPCS: J7512; J7620

== ENCOUNTER 2024-02-28 21:47 | Emergency (ER) | payer SELFPAY ==
[2024-02-28] MEDS ORDERED: Ketorolac Tromethamine 10 MG TAB ONE (23:00)
== END 2024-02-29 00:08 | disposition home or self-care (01) ==
LOC: MADERS 21:47
DX: S32.10XA Unspecified fracture of sacrum, initial encounter for closed fracture (principal); W01.10XA Fall on same level from slipping, tripping and stumbling with subsequent striking against unspecified object, initial encounter
CPT/HCPCS: 72220

== ENCOUNTER 2024-09-05 15:59 | Emergency (ER) | payer SELFPAY ==
[2024-09-05] MEDS ORDERED: Bupivacaine PF 0.5% 30 ML VIAL ONE (17:04)
== END 2024-09-05 17:55 | disposition home or self-care (01) ==
LOC: MADERS 15:59
DX: K08.89 Other specified disorders of teeth and supporting structures (principal); K04.7 Periapical abscess without sinus; K03.81 Cracked tooth
CPT/HCPCS: 64400; J0665

== ENCOUNTER 2024-09-08 16:55 | Emergency (ER) | payer SELFPAY ==
[2024-09-08] MEDS ORDERED: Clindamycin 150 MG CAP ONE (17:54)
== END 2024-09-08 18:00 | disposition home or self-care (01) ==
LOC: MADERS 16:55
DX: K04.7 Periapical abscess without sinus (principal); K59.00 Constipation, unspecified; K02.9 Dental caries, unspecified
CPT/HCPCS: 99282

== ENCOUNTER 2025-03-16 17:47 | Emergency (ER) | payer SELFPAY ==
[2025-03-16] MEDS ORDERED: Clindamycin 150 MG CAP ONE (19:32)
== END 2025-03-16 19:39 | disposition home or self-care (01) ==
LOC: MADERS 17:47
DX: S93.402A Sprain of unspecified ligament of left ankle, initial encounter (principal); K04.7 Periapical abscess without sinus; X50.1XXA Overexertion from prolonged static or awkward postures, initial encounter
CPT/HCPCS: 99283